=== PATIENT | male | born 1995 | race Caucasian/White ===

== ENCOUNTER 2017-03-06 22:24 | Emergency (ER) | payer SELFPAY ==
[2017-03-06 23:13] LABS: BASOPHIL % 0.5 % (0.0-0.4); Eosinophil % 2.4 % (0.00-5.0); Granulocytes % 61.6 % (36.0-66.0); Lymphocytes % 25.2 % (24.0-44.0); Mean Cell Volume 89.9 fl (78-100); Mean Corpuscular Hemoglobin 31.1 pg (26-32); Monocytes % 10.3 % (0.0-12.0); Platelet Count 251 K/mm3 (150-450); Red Blood Count 4.95 M/mm3 (4.1-5.6); Red Cell Distribution Width 13.3 % (11.5-14.0); White Blood Count 11.4 K/mm3 (4.0-10.5)
[2017-03-06 23:36] LABS: ALBUMIN 4.2 g/dL (3.4-5.0); ALKALINE PHOSPHATASE 75 U/L (46-116); ANION GAP 14.1 MEQ/L (5-15); BLOOD UREA NITROGEN 16 mg/dL (9-20); CHLORIDE 101 mEq/L (98-107); Carbon Dioxide 27.9 mEq/L (21-32); Glucose 109 MG/DL (70-110); Potassium 3.7 mEq/L (3.5-5.1); SGOT/AST 61 U/L (15-37); SGPT/ALT 106 U/L (12-78); SODIUM 139 mEq/L (136-145); Total Protein 8.6 gm/dL (6.4-8.2)
[2017-03-06 23:39] VITALS: BP 119/59; PULSE 100; O2SAT 100
[2017-03-06 23:44] LABS: ACETAMINOPHEN < 2.0 ug/ml (10-30)
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
[2017-03-07] MEDS ORDERED: BACIGUENT PACKET ONE (04:51)
[2017-03-07] MEDS ORDERED: BACIGUENT PACKET TP ONE (05:14)
== END 2017-03-07 05:15 | disposition short-term general hospital (02) ==
LOC: ED 22:24
DX: R45.851 Suicidal ideations (principal); X78.8XXA Intentional self-harm by other sharp object, initial encounter; Z91.5 Personal history of self-harm; F19.10 Other psychoactive substance abuse, uncomplicated
CPT/HCPCS: 36415; 80053; 80307; 80320; 83986; 85025; 99285; G0481; A9270-GY

== ENCOUNTER 2017-03-19 14:32 | Observation (INO) | payer MEDICAID ==
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
[2017-03-19] MEDS ORDERED: Sodium Chloride 0.9% 1000 ML 1,000 ML IV STA (15:32)
[2017-03-19] MEDS ORDERED: Ativan 2 MG/1 ML VIAL IV ONE (15:32)
[2017-03-19] MEDS ORDERED: Sodium Chloride 0.9% 1000 ML 1,000 ML ONE (15:39)
[2017-03-19] MEDS ORDERED: Ativan 2 MG/1 ML VIAL ONE (15:39)
[2017-03-19 15:49] LABS: BASOPHIL % 0.4 % (0.0-0.4); Eosinophil % 1.2 % (0.00-5.0); Lymphocytes % 15.5 % (24.0-44.0); Mean Cell Volume 88.1 fl (78-100); Mean Corpuscular Hemoglobin 30.7 pg (26-32); Mean Platelet Volume 9.7 fl (6-9.5); Monocytes % 12.9 % (0.0-12.0); Platelet Count 200 K/mm3 (150-450); Red Blood Count 4.37 M/mm3 (4.1-5.6); Red Cell Distribution Width 13.1 % (11.5-14.0); White Blood Count 10.4 K/mm3 (4.0-10.5)
[2017-03-19 15:59] LABS: ADD URINE CULTURE? NO (NO); Bilirubin NEGATIVE (NEGATIVE); Blood NEGATIVE Ery/ul (0-5); COMPLETE URINE MICROSCOPIC? NO; Collection Type VOID; Glucose NEGATIVE (NEGATIVE); Leukocyte Esterase NEGATIVE (NEGATIVE)
[2017-03-19 16:10] LABS: ALBUMIN 4.4 g/dL (3.4-5.0); ALKALINE PHOSPHATASE 67 U/L (46-116); ANION GAP 14.4 MEQ/L (5-15); BLOOD UREA NITROGEN 18 mg/dL (9-20); CHLORIDE 103 mEq/L (98-107); Carbon Dioxide 26.3 mEq/L (21-32); Glucose 81 MG/DL (70-110); Potassium 3.3 mEq/L (3.5-5.1); SGOT/AST 74 U/L (15-37); SGPT/ALT 103 U/L (12-78); SODIUM 140 mEq/L (136-145); Total Protein 7.8 gm/dL (6.4-8.2)
[2017-03-19 16:17] LABS: ACETAMINOPHEN < 2.0 ug/ml (10-30)
[2017-03-19] MEDS ORDERED: Klor Con 10 MEQ PO ONE ×2 (16:28→16:31)
[2017-03-19] MEDS ORDERED: TYLENOL 325 MG PO PRN (18:55)
[2017-03-19] MEDS ORDERED: Sodium Chloride 0.9% 1000 ML 1,000 ML IV SCH (18:55)
[2017-03-20] MEDS: Ativan 2 MG/1 ML VIAL IV PRN ×2 (02:45→04:03)
[2017-03-20] MEDS ORDERED: TYLENOL EXTRA STRENGTH 500 MG PO PRN (03:46)
[2017-03-20 05:57] LABS: BASOPHIL % 0.6 % (0.0-0.4); Eosinophil % 2.7 % (0.00-5.0); Granulocytes % 61.5 % (36.0-66.0); Lymphocytes % 20.2 % (24.0-44.0); Mean Cell Volume 88.7 fl (78-100); Mean Corpuscular Hemoglobin 31.3 pg (26-32); Mean Platelet Volume 9.7 fl (6-9.5); Platelet Count 204 K/mm3 (150-450); Red Blood Count 4.25 M/mm3 (4.1-5.6); Red Cell Distribution Width 13.2 % (11.5-14.0); White Blood Count 9.5 K/mm3 (4.0-10.5)
[2017-03-20] MEDS ORDERED: Ativan 2 MG/1 ML VIAL IM ONE (06:19)
[2017-03-20 06:32] LABS: ALBUMIN 3.8 g/dL (3.4-5.0); BLOOD UREA NITROGEN 14 mg/dL (9-20); CHLORIDE 107 mEq/L (98-107); Potassium 3.7 mEq/L (3.5-5.1); SGOT/AST 74 U/L (15-37)
[2017-03-20 09:02] LABS: ALKALINE PHOSPHATASE 58 U/L (46-116); ANION GAP 14.5 MEQ/L (5-15); Glucose 97 MG/DL (70-110); SGPT/ALT 97 U/L (12-78); SODIUM 140 mEq/L (136-145)
[2017-03-20] MEDS ORDERED: ZOLOFT 50 MG TABLET PO SCH (10:30)
[2017-03-20] MEDS ORDERED: Seroquel 100 MG PO SCH (10:30)
[2017-03-20 12:53] VITALS: BP 122/81; PULSE 67; O2SAT 97
--- NOTE | 2017-03-21 09:24 | HP ---
CHIEF COMPLAINT: Suicidal ideation and multiple drug abuse. Recent release from [facility] for the same. HISTORY OF PRESENT ILLNESS: The patient is a 21 y/o WM patient who presented to our Emergency Room for emergency correction for the above problems. He has been admitted to our Intensive Care Unit for close monitoring for placement. He has been placed on emergency correction by the cardiology coordinator and the Emergency Room physician. HOME MEDICATIONS: Apparently, he had been placed on Seroquel and Zoloft in the stress center. However, it is unlikely the patient has been taking any of his medications. PHYSICAL EXAMINATION: Reveals a well-nourished, well-developed, somewhat thin, 21 y/o WM patient currently somewhat obtunded from treatment of Ativan for sedation. The patient is handcuffed on both hands as he currently overnight had ran out of the hospital and was brought by the security team. HEENT: Normocephalic and atraumatic. Pupils equal, round, and reactive to light. Extraocular movements intact. Oropharynx is with poor dentition. NECK: Supple without lymphadenopathy, thyromegaly, or JVD. CHEST: Clear to auscultation with good air movement bilaterally. HEART: Regular rate and rhythm without murmurs, rubs, or gallops. ABDOMEN: Soft, nontender, nondistended without hepatosplenomegaly or masses. EXTREMITIES: Without cyanosis, clubbing, or edema. Again, he is hand cuffed and in the Intensive Care Unit bed. NEURO: Somewhat somnolent due to the treatment with Ativan. LABORATORY STUDIES: Shows the CBC which was essentially normal. He has had a metabolic panel showing slightly low potassium of 3.3. Liver enzymes were slightly elevated with an SGOT of 74 and SGPT of 103. Acetaminophen and salicylate levels were essentially negative and on his urine drug screen, he was positive for amphetamines, benzodiazepines, and opiates. The patient's ETOH was essentially negative. TSH was normal. UA was normal. ASSESSMENT: 1. THE PATIENT WITH PSYCHIATRIC DISORDERS, SUICIDAL INTENTION, AND MULTIPLE DRUG ABUSE AND USAGE. He is currently in the Intensive Care Unit under monitoring with an emergency correction order for admission to inpatient facility when a bed is available at the nearest facility possibly returning him back to [facility] since he has most recently been there and they would be most familiar with him.
== END 2017-03-20 15:20 ==
LOC: ED 14:32 → ICU 18:49
PROVIDERS: ADMIT Family Medicine; ATTEND Family Medicine
DX: F99 Mental disorder, not otherwise specified (principal); R45.851 Suicidal ideations; R45.850 Homicidal ideations; F19.10 Other psychoactive substance abuse, uncomplicated
CPT/HCPCS: 36000; 36415; 80053; 80307; 80320; 81002; 83986; 84443; 85025; 93005; 93041; 93268; 96360; 96361; 96374; 99285; G0378; G0481; J2060; A9270-GY

== ENCOUNTER 2017-09-29 13:24 | Emergency (ER) | payer SELFPAY ==
--- NOTE | 2017-09-29 13:33 | ERPHSYRPT ---
- History of Present Illness Time Seen by Provider: 09/29/17 13:27 Source: patient Exam Limitations: no limitations Physician History: The patient is a 22-year-old male brought in by ambulance from [facility] complaining of a cough for 2-3 days. He denies fever. Now hurts when he takes a big breath or coughs. He called the ambulance because he did not have a ride. He denies nausea, vomiting, or diarrhea. He did not get his influenza vaccination this year. He takes no prescription medicines at this time. Timing/Duration: day(s) (3) Cough Quality/Degree: moderate, dry cough Possible Cause: occasional episodes, smoke exposure Modifying Factors: Improves With: coughing Associated Symptoms: cough Allergies/Adverse Reactions: No Known Drug Allergies Allergy (Verified 09/29/17 13:32) Hx Tetanus, Diphtheria Vaccination/Date Given: No Hx Influenza Vaccination/Date Given: No Hx Pneumococcal Vaccination/Date Given: No - Review of Systems Constitutional: No Fever, No Chills Eyes: No Symptoms Ears, Nose, & Throat: No Symptoms Respiratory: Cough Cardiac: Chest Pain, No Edema, No Syncope Abdominal/Gastrointestinal: No Abdominal Pain, No Nausea, No Vomiting, No Diarrhea Genitourinary Symptoms: No Dysuria Musculoskeletal: No Back Pain, No Neck Pain Skin: No Rash Neurological: No Dizziness, No Focal Weakness, No Sensory Changes Psychological: No Symptoms Endocrine: No Symptoms Hematologic/Lymphatic: No Symptoms Immunological/Allergic: No Symptoms All Other Systems: Reviewed and Negative - Past Medical History Pertinent Past Medical History: No Neurological History: No Pertinent History ENT History: No Pertinent History Cardiac History: No Pertinent History Respiratory History: No Pertinent History Endocrine Medical History: No Pertinent History Musculoskeletal History: Other GI Medical History: No Pertinent History History: No Pertinent History Psycho-Social History: Anxiety, Depression Male Reproductive Disorders: No Pertinent History Other Medical History: DENTAL PROBLEMS - Past Surgical History Past Surgical History: Yes Neuro Surgical History: No Pertinent History Cardiac: No Pertinent History Respiratory: No Pertinent History Gastrointestinal: No Pertinent History Genitourinary: No Pertinent History Musculoskeletal: Orthopedic Surgery Male Surgical History: No Pertinent History Other Surgical History: LACERATION TO WRIST 05/05/15. Information was recalled due to patient sleeping. only wakes for a minute, will not answer questions. - Social History Smoking Status: Current every day smoker How long have you smoked: 5 YRS Exposure to second hand smoke: Yes Alcohol Use: None Drug Use: marijuana Patient Lives Alone: No Significant Family History: no pertinent family hx - Nursing Vital Signs Nursing Vital Signs: Initial Vital Signs Temperature 97.5 F 09/29/17 13:27 Pulse Rate 95 H 09/29/17 13:27 Respiratory Rate 22 09/29/17 13:27 Blood Pressure 138/75 09/29/17 13:27 O2 Sat by Pulse Oximetry 100 09/29/17 13:27 Pain Scale Pain Intensity 6 - Physical Exam General Appearance: no apparent distress, alert Eye Exam: PERRL/EOMI, eyes nml inspection Ears, Nose, Throat Exam: normal ENT inspection Neck Exam: normal inspection Respiratory Exam: chest tenderness Cardiovascular Exam: regular rate/rhythm, normal heart sounds Gastrointestinal/Abdomen Exam: soft, No tenderness Rectal Exam: not done Back Exam: normal inspection, No CVA tenderness, No vertebral tenderness Extremity Exam: normal inspection, normal range of motion Neurologic Exam: alert, oriented x 3, cooperative, normal mood/affect, sensation nml, No motor deficits Skin Exam: normal color, warm, dry, No rash Lymphatic Exam: No adenopathy SpO2 Interpretation: normal - Radiology Exams Chest X-ray Interpretation: Teleradiologist Report, Negative (Per Dr Hannon.) Ordered Tests: Active Orders 24 hr Category Date Time Status CHEST 2 VIEWS (PA AND LAT) Stat Exams 09/29/17 13:36 Completed Medication Summary Discontinued Medications Generic Name Dose Route Start Last Admin Trade Name Carlq PRN Reason Stop Dose Admin Ketorolac Tromethamine 60 mg 09/29/17 13:36 09/29/17 13:43 Toradol 30 Mg Injection IM 09/29/17 13:37 60 mg STAT ONE Administration Ketorolac Tromethamine Confirm 09/29/17 13:38 Toradol 30 Mg Injection Administered 09/29/17 13:39 Dose 60 mg .ROUTE .STK-MED ONE Lab/Rad Data: Laboratory Results 09/29/17 Range/Units 14:14 Influenza Type A Ag NEGATIVE (NEGATIVE) Influenza Type B Ag NEGATIVE (NEGATIVE) - Progress Progress: unchanged Air Movement: good Blood Culture(s) Obtained: No Antibiotics given: No Counseled pt/family regarding: lab results, diagnosis, rad results - Departure Time of Disposition: 14:34 Departure Disposition: Home Clinical Impression: Cough, Pleurisy Condition: Stable Critical Care Time: No Referrals: BLAIRE VALDES [Primary Care Provider] - Additional Instructions: You have a cough and pleurisy. You were given Toradol 60 mg by IM in the ER. Take Tessalon 100 mg every 8 hours as needed for cough. Follow-up as needed. Prescriptions: Benzonatate [Tessalon Perle] 100 mg PO Q8H PRN PRN #12 capsule PRN Reason: Cough
[2017-09-29] MEDS ORDERED: TORAdol 30 mg Injection IM ONE (13:36)
[2017-09-29] MEDS ORDERED: TORAdol 30 mg Injection ONE (13:38)
--- NOTE | 2017-09-29 14:02 | XRAY ---
Indication: Cough. Comparison: April 24, 2010. PA/lateral chest demonstrates normal heart, lungs, and bony thorax.
[2017-09-29 14:16] LABS: INFLUENZA A NEGATIVE (NEGATIVE); INFLUENZA B NEGATIVE (NEGATIVE)
[2017-09-29 14:45] VITALS: BP 106/70; PULSE 96; O2SAT 98
== END 2017-09-29 15:00 | disposition home or self-care (01) ==
LOC: ED 13:24
DX: R05 Cough (principal); R09.1 Pleurisy; F41.8 Other specified anxiety disorders; Z72.0 Tobacco use; F12.90 Cannabis use, unspecified, uncomplicated
CPT/HCPCS: 71020; 87400; 96372; 99284; J1885

== ENCOUNTER → 2018-01-20 | Emergency (ER) | payer SELFPAY ==
[2018-01-20 23:01] VITALS: O2SAT 100
[2018-01-20 23:15] LABS: BASOPHIL % 0.4 % (0.0-0.4); Basophil (Absolute #) 0.04 (0-0.4); Eosinophil % 2.7 % (0.00-5.0); Eosinophil (Absolute #) 0.25 (0-0.5); Granulocyte Absolute (ANC) 5.19 (1.4-6.9); Granulocytes % 55.7 % (36.0-66.0); Hematocrit 37.5 % (42-50); Hemoglobin 12.9 gm/dl (12.5-18.0); Lymphocyte (Absolute #) 2.79 (1.0-4.6); Mean Cell Volume 90.4 fl (78-100); Mean Corpuscular Hemoglobin 31.1 pg (26-32); Mean Corpuscular Hgb Concent. 34.4 g/dl (32-36); Mean Platelet Volume 9.2 fl (6-9.5); Monocyte (Absolute #) 1.04 (0.0-1.3); Monocytes % 11.2 % (0.0-12.0); Platelet Count 226 K/mm3 (150-450); Red Blood Count 4.15 M/mm3 (4.1-5.6); Red Cell Distribution Width 14.2 % (11.5-14.0); White Blood Count 9.3 K/mm3 (4.0-10.5)
[2018-01-20 23:32] LABS: Barbiturate,Urine NEGATIVE (NEGATIVE); Benzodiazepine,Urine NEGATIVE (NEGATIVE); Cocaine,Urine NEGATIVE (NEGATIVE); Methadone,Urine NEGATIVE (NEGATIVE); Opiate,Urine POSITIVE (NEGATIVE); PCP,Urine NEGATIVE (NEGATIVE); THC,Urine NEGATIVE (NEGATIVE)
[2018-01-20 23:35] LABS: ALBUMIN 3.9 g/dL (3.5-5.0); ALKALINE PHOSPHATASE 65 U/L (38-126); BLOOD UREA NITROGEN 9 mg/dL (9-20); CHLORIDE 106 mmol/L (98-107); Calcium 8.9 mg/dL (8.4-10.2); Carbon Dioxide 26 mmol/L (22-30); Creatinine 1 0.64 mg/dL (0.66-1.25); Glucose 90 mg/dL (74-106); Potassium 4.2 mmol/L (3.5-5.1); SGOT/AST 80 U/L (17-59); SGPT/ALT 134 U/L (0-50); SODIUM 140 mmol/L (137-145); Total Protein 6.6 g/dL (6.3-8.2)
[2018-01-20 23:37] LABS: ETHYL ALCOHOL < 10 mg/dL (0-9)
[2018-01-20 23:58] LABS: Amphetamine,Urine POSITIVE (NEGATIVE)
--- NOTE | 2018-01-21 00:06 | ERPHSYRPT ---
- History of Present Illness Time Seen by Provider: 01/21/18 00:05 Source: patient, police Exam Limitations: no limitations Patient Subjective Stated Complaint: pt brought in by police for waving gun around. pt pointed gun at people and then put it to his head. said he wanted to get shot and asked the police to "shoot him". after multiple attempts the pt finally put the gun down. Triage Nursing Assessment: pt brought in by police. pt is alert and oriented. Physician History: pt brought in by police for waving gun around. pt pointed gun at people and then put it to his head. said he wanted to get shot and asked the police to "shoot him". after multiple attempts the pt finally put the gun down. Allergies/Adverse Reactions: No Known Drug Allergies Allergy (Verified 09/29/17 13:32) Hx Tetanus, Diphtheria Vaccination/Date Given: No Hx Influenza Vaccination/Date Given: No Hx Pneumococcal Vaccination/Date Given: No Immunizations Up to Date: No - Past Medical History Pertinent Past Medical History: No Neurological History: No Pertinent History ENT History: No Pertinent History Cardiac History: No Pertinent History Respiratory History: No Pertinent History Endocrine Medical History: No Pertinent History Musculoskeletal History: Other GI Medical History: No Pertinent History History: No Pertinent History Psycho-Social History: Anxiety, Depression Male Reproductive Disorders: No Pertinent History Other Medical History: DENTAL PROBLEMS - Past Surgical History Past Surgical History: Yes Neuro Surgical History: No Pertinent History Cardiac: No Pertinent History Respiratory: No Pertinent History Gastrointestinal: No Pertinent History Genitourinary: No Pertinent History Musculoskeletal: Orthopedic Surgery Male Surgical History: No Pertinent History Other Surgical History: LACERATION TO WRIST 05/05/15. Information was recalled due to patient sleeping. only wakes for a minute, will not answer questions. - Social History Smoking Status: Current every day smoker How long have you smoked: 5 YRS Exposure to second hand smoke: Yes Alcohol Use: None Drug Use: marijuana, methamphetamines, narcotics, cocaine, heroin Patient Lives Alone: No Significant Family History: no pertinent family hx - Review of Systems Constitutional: No Fever, No Chills Eyes: No Symptoms Ears, Nose, & Throat: No Symptoms Respiratory: No Cough, No Dyspnea Cardiac: No Chest Pain, No Edema, No Syncope Abdominal/Gastrointestinal: No Abdominal Pain, No Nausea, No Vomiting, No Diarrhea Genitourinary Symptoms: No Dysuria Musculoskeletal: No Back Pain, No Neck Pain Skin: No Rash Neurological: No Dizziness, No Focal Weakness, No Sensory Changes Psychological: Drug Abuse, Suicidal Ideations, Emotional Lability Endocrine: No Symptoms All Other Systems: Reviewed and Negative - Nursing Vital Signs Nursing Vital Signs: Initial Vital Signs Temperature 98.4 F 01/20/18 22:47 Pulse Rate 96 H 01/20/18 22:47 Respiratory Rate 16 01/20/18 22:47 Blood Pressure 104/60 01/20/18 22:47 O2 Sat by Pulse Oximetry 100 01/20/18 22:47 Pain Scale Pain Intensity 0 - Physical Exam General Appearance: no apparent distress Eyes, Ears, Nose, Throat Exam: normal ENT inspection, moist mucous membranes Neck Exam: normal inspection, non-tender, supple Respiratory Exam: normal breath sounds, lungs clear, No respiratory distress Cardiovascular Exam: regular rate/rhythm, No edema Gastrointestinal/Abdominal Exam: soft, No tenderness, No distention Extremities Exam: normal inspection, normal range of motion, No evidence of injury, No edema Current Suicidality: denies suicide plan Neurological Exam: alert, 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-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 nml as tested, oriented x 3 Appearance: impaired insight, impaired recent memory Behavior/Eye Contact/Speech: avoids eye contact, refused to answer, increased rate of speech, agitated Thoughts/Hallucinations: incoherent Skin Exam: normal color, warm, dry, No rash SpO2: 100 - Course Nursing assessment & vital signs reviewed: Yes Ordered Tests: Active Orders 24 hr Category Date Time Status Clean Catch Urine Specimen STAT Care 01/20/18 23:08 Active Psychiatric Evaluation STAT Care 01/20/18 22:57 Active CBC W DIFF Stat Lab 01/20/18 23:12 Completed CMP Stat Lab 01/20/18 23:12 Completed ETHYL ALCOHOL Stat Lab 01/20/18 23:12 Completed Urine Triage Profile Stat Lab 01/20/18 23:00 Completed Lab/Rad Data: Laboratory Result Diagrams 01/20/18 23:12 01/20/18 23:12 Laboratory Results 01/20/18 01/20/18 01/20/18 Range/Units 23:12 23:12 23:00 WBC 9.3 (4.0-10.5) K/mm3 RBC 4.15 (4.1-5.6) M/mm3 Hgb 12.9 (12.5-18.0) gm/dl Hct 37.5 L (42-50) % MCV 90.4 (78-100) fl MCH 31.1 (26-32) pg MCHC 34.4 (32-36) g/dl RDW 14.2 H (11.5-14.0) % Plt Count 226 (150-450) K/mm3 MPV 9.2 (6-9.5) fl Gran % 55.7 (36.0-66.0) % Eos # (Auto) 0.25 (0-0.5) Absolute Lymphs (auto) 2.79 (1.0-4.6) Absolute Monos (auto) 1.04 (0.0-1.3) Lymphocytes % 30.0 (24.0-44.0) % Monocytes % 11.2 (0.0-12.0) % Eosinophils % 2.7 (0.00-5.0) % Basophils % 0.4 (0.0-0.4) % Absolute Granulocytes 5.19 (1.4-6.9) Basophils # 0.04 (0-0.4) Sodium 140 (137-145) mmol/L Potassium 4.2 (3.5-5.1) mmol/L Chloride 106 (98-107) mmol/L Carbon Dioxide 26 (22-30) mmol/L Anion Gap 12.0 (5-15) MEQ/L BUN 9 (9-20) mg/dL Creatinine 0.64 L (0.66-1.25) mg/dL Estimated GFR > 60.0 ML/MIN Glucose 90 (74-106) mg/dL Calcium 8.9 (8.4-10.2) mg/dL Total Bilirubin 0.20 (0.2-1.3) mg/dL AST 80 H (17-59) U/L ALT 134 H (0-50) U/L Alkaline Phosphatase 65 (38-126) U/L Serum Total Protein 6.6 (6.3-8.2) g/dL Albumin 3.9 (3.5-5.0) g/dL Urine Opiates Level POSITIVE (NEGATIVE) Ur Methadone NEGATIVE (NEGATIVE) Urine Barbiturates NEGATIVE (NEGATIVE) Ur Phencyclidine (PCP) NEGATIVE (NEGATIVE) Urine Amphetamine POSITIVE (NEGATIVE) U Benzodiazepine Level NEGATIVE (NEGATIVE) Urine Cocaine NEGATIVE (NEGATIVE) Urine Marijuana (THC) NEGATIVE (NEGATIVE) Ethyl Alcohol < 10 H (0-9) mg/dL - Progress Progress: unchanged Discussed with Dr.: Other (Telepsych evaluation by [facility]) - Departure Time of Disposition: 01:29 Departure Disposition: Transfer Clinical Impression: Suicidal ideation Condition: Fair Critical Care Time: Yes Critical Care Time(excluding separately billable procedures): 30-74 minutes Referrals: DOCTOR,NO FAMILY [Primary Care Provider] -
[2018-01-21 03:19] VITALS: PULSE 82
[2018-01-21 03:20] VITALS: BP 140/66
== END ==
LOC: ED 22:46
DX: R45.851 Suicidal ideations (principal); F41.8 Other specified anxiety disorders; Z72.0 Tobacco use
CPT/HCPCS: 36415; 80053; 80307; 85025; 99284; 99285; G0480

== ENCOUNTER 2018-05-08 07:02 | Emergency (ER) | payer OTHER ==
--- NOTE | 2018-05-08 07:39 | ERPHSYRPT ---
- History of Present Illness Time Seen by Provider: 05/08/18 07:33 Source: patient Exam Limitations: no limitations Patient Subjective Stated Complaint: pt presents with complaints of heat exhaustion, dizziness and weakness. states he has not eaten for 2 days and been walking between [place] and [place] and walked about 20 miles. feels like he is dehydrated. reports he is homeless. pt states "i dont want to live, i have no purpose." reports he walked to the police station and told them if they didnt help him he would shoot himself. pt reports he has been unconscious for periods as well. Triage Nursing Assessment: pt is aox3, pupils perrl, resps easy and non labored , radial pulses are strong and equal. pt skin is pink warm and dry. pt appears anxious, pt speech is rambling, pt is tearful, pt is upset with the amount of questions asked my staff. Physician History: The patient is a 22-year-old male with a long psychiatric history of depression and suicide attempts brought in by ambulance from the police station in town where he presented to the police stating that he was going to shoot himself. The patient is tearful and animated upon initial interview and tells me that he has been homeless since getting out of longterm 7 months ago. For the past 2 days he has been sleeping in [place]. No one will help him. 2 days ago he walked to a nearby town and got $6 from his grandfather with which he bought something to drink and pizza. He states that he wants to go to the but he cannot because of his arrest record. He confides in me that he has done opiates in the past. He states 2 days ago he did methamphetamine. He also tells me in the past he tried to hang himself but the rope was too long and his feet hit the ground. He has scars on both forearms from which he has attempted to cut his arms and wrists in a suicide attempt. He tells me no one will help him. He 's been in the , [facility], and psychiatric hospitals in [place]. He states people want to give him medicines. He is currently taking no medicines. Timing/Duration: week(s), gradual onset, worse Severity of Symptoms-Max: moderate Severity of Symptoms-Current: moderate Context related to: living circumstances Suicidal thoughts: specific plan Associated Symptoms: agitated, anxiety, depressed, frustrated, suicidal ideation Previous symptoms: same symptoms as today, recent hospitalization Allergies/Adverse Reactions: No Known Drug Allergies Allergy (Verified 09/29/17 13:32) Hx Tetanus, Diphtheria Vaccination/Date Given: Yes Hx Influenza Vaccination/Date Given: No Hx Pneumococcal Vaccination/Date Given: No Immunizations Up to Date: Yes - Past Medical History Pertinent Past Medical History: No Neurological History: No Pertinent History ENT History: No Pertinent History Cardiac History: No Pertinent History Respiratory History: No Pertinent History Endocrine Medical History: No Pertinent History Musculoskeletal History: Other GI Medical History: No Pertinent History History: No Pertinent History Psycho-Social History: Anxiety, Depression Male Reproductive Disorders: No Pertinent History Other Medical History: DENTAL PROBLEMS - Past Surgical History Past Surgical History: Yes Neuro Surgical History: No Pertinent History Cardiac: No Pertinent History Respiratory: No Pertinent History Gastrointestinal: No Pertinent History Genitourinary: No Pertinent History Musculoskeletal: Orthopedic Surgery Male Surgical History: No Pertinent History Other Surgical History: LACERATION TO WRIST 05/05/15. Information was recalled due to patient sleeping. only wakes for a minute, will not answer questions. - Social History Smoking Status: Never smoker How long have you smoked: 5 YRS Exposure to second hand smoke: Yes Alcohol Use: None Drug Use: none Patient Lives Alone: Yes Significant Family History: no pertinent family hx - Review of Systems Constitutional: No Fever, No Chills Eyes: No Symptoms Ears, Nose, & Throat: No Symptoms Respiratory: No Cough, No Dyspnea Cardiac: No Chest Pain, No Edema, No Syncope Abdominal/Gastrointestinal: No Abdominal Pain, No Nausea, No Vomiting, No Diarrhea Genitourinary Symptoms: No Dysuria Musculoskeletal: No Back Pain, No Neck Pain Skin: No Rash Neurological: No Dizziness, No Focal Weakness, No Sensory Changes Psychological: Anxiety, Depression, Suicidal Ideations, Emotional Lability Endocrine: No Symptoms Hematologic/Lymphatic: No Symptoms Immunological/Allergic: No Symptoms All Other Systems: Reviewed and Negative - Nursing Vital Signs Nursing Vital Signs: Initial Vital Signs Pulse Rate 89 05/08/18 07:06 Respiratory Rate 20 05/08/18 07:06 Blood Pressure 123/89 05/08/18 07:06 O2 Sat by Pulse Oximetry 100 05/08/18 07:06 Pain Scale Pain Intensity 0 - Physical Exam General Appearance: moderate distress, anxiety Eyes, Ears, Nose, Throat Exam: normal ENT inspection, moist mucous membranes Neck Exam: normal inspection, non-tender, supple Respiratory Exam: normal breath sounds, lungs clear, No respiratory distress Cardiovascular Exam: regular rate/rhythm, No edema Gastrointestinal/Abdominal Exam: soft, No tenderness, No distention Extremities Exam: normal inspection, normal range of motion, No evidence of injury, No edema Current Suicidality: has suicide plan Neurological Exam: agitated, anxious Appearance: appropriate appearance, impaired insight Behavior/Eye Contact/Speech: alert & cooperative, increased rate of speech Thoughts/Hallucinations: paranoid Skin Exam: normal color, warm, dry, No rash SpO2 Interpretation: normal SpO2: 100 Oxygen Delivery: Room Air - Course EKG Interpreted by Me: RATE, Sinus Rhythm, NORMAL AXIS, NORMAL INTERVALS, NORMAL QRS, NORMAL ST-T Ordered Tests: Active Orders 24 hr Category Date Time Status Gas Station Operator STAT Care 05/08/18 07:34 Active EKG-ER Only STAT Care 05/08/18 07:34 Active IV Insertion STAT Care 05/08/18 07:34 Active ACETAMINOPHEN Stat Lab 05/08/18 07:45 Completed CBC W DIFF Stat Lab 05/08/18 07:45 Completed CMP Stat Lab 05/08/18 07:45 Completed ETHYL ALCOHOL Stat Lab 05/08/18 07:45 Completed SALICYLATE Stat Lab 05/08/18 07:45 Completed UA W/RFX UR CULTURE Stat Lab 05/08/18 08:05 Completed Urine Triage Profile Stat Lab 05/08/18 08:05 Completed Medication Summary Discontinued Medications Generic Name Dose Route Start Last Admin Trade Name Mulugeta PRN Reason Stop Dose Admin Sodium Chloride 1,000 mls @ 999 mls/hr 05/08/18 07:34 05/08/18 08:58 Sodium Chloride 0.9% 1000 Ml IV 05/08/18 08:34 Infused .Q1H1M STA Infusion Sodium Chloride Confirm 05/08/18 07:44 Sodium Chloride 0.9% 1000 Ml Administered 05/08/18 07:45 Dose 1,000 mls @ ud .ROUTE .STK-MED ONE Lab/Rad Data: Laboratory Result Diagrams 05/08/18 07:45 05/08/18 07:45 Laboratory Results 05/08/18 05/08/18 05/08/18 Range/Units 08:05 08:05 07:45 WBC (4.0-10.5) K/mm3 RBC (4.1-5.6) M/mm3 Hgb (12.5-18.0) gm/dl Hct (42-50) % MCV (78-100) fl MCH (26-32) pg MCHC (32-36) g/dl RDW (11.5-14.0) % Plt Count (150-450) K/mm3 MPV (6-9.5) fl Gran % (36.0-66.0) % Eos # (Auto) (0-0.5) Absolute Lymphs (auto) (1.0-4.6) Absolute Monos (auto) (0.0-1.3) Lymphocytes % (24.0-44.0) % Monocytes % (0.0-12.0) % Eosinophils % (0.00-5.0) % Basophils % (0.0-0.4) % Absolute Granulocytes (1.4-6.9) Basophils # (0-0.4) Sodium 139 (137-145) mmol/L Potassium 3.9 (3.5-5.1) mmol/L Chloride 98 (98-107) mmol/L Carbon Dioxide 24 (22-30) mmol/L Anion Gap 21.8 H (5-15) MEQ/L BUN 22 H (9-20) mg/dL Creatinine 0.93 (0.66-1.25) mg/dL Estimated GFR > 60.0 ML/MIN Glucose 95 (74-106) mg/dL Calcium 9.4 (8.4-10.2) mg/dL Total Bilirubin 2.20 H (0.2-1.3) mg/dL AST 115 H (17-59) U/L ALT 142 H (0-50) U/L Alkaline Phosphatase 150 H (38-126) U/L Serum Total Protein 8.5 H (6.3-8.2) g/dL Albumin 5.2 H (3.5-5.0) g/dL Ur Collection Type VOID Urine Color YELLOW (YELLOW) Urine Appearance CLEAR (CLEAR) Urine pH 5.0 (5-6) Ur Specific [place] 1.020 (1.005-1.025) Urine Protein NEGATIVE (Negative) Urine Ketones SMALL-15 (NEGATIVE) Urine Blood NEGATIVE (0-5) Darion/ul Urine Nitrite NEGATIVE (NEGATIVE) Urine Bilirubin NEGATIVE (NEGATIVE) Urine Urobilinogen NORMAL (0-1) mg/dL Ur Leukocyte Esterase NEGATIVE (NEGATIVE) Urine Culture Reflexed NO (NO) Urine Glucose NEGATIVE (NEGATIVE) mg/dL Salicylates < 1.0 L (2-20) mg/dL Urine Opiates Level NEGATIVE (NEGATIVE) Ur Methadone NEGATIVE (NEGATIVE) Acetaminophen < 10 L (10-30) ug/ml Urine Barbiturates NEGATIVE (NEGATIVE) Ur Phencyclidine (PCP) NEGATIVE (NEGATIVE) Urine Amphetamine POSITIVE (NEGATIVE) U Benzodiazepine Level NEGATIVE (NEGATIVE) Urine Cocaine NEGATIVE (NEGATIVE) Urine Marijuana (THC) NEGATIVE (NEGATIVE) Ethyl Alcohol < 10 (0-10) mg/dL Specimen Received 05/08 81505/08/18 Range/Units 07:45 WBC 8.4 (4.0-10.5) K/mm3 RBC 4.91 (4.1-5.6) M/mm3 Hgb 15.5 (12.5-18.0) gm/dl Hct 42.5 (42-50) % MCV 86.6 (78-100) fl MCH 31.6 (26-32) pg MCHC 36.5 H (32-36) g/dl RDW 13.1 (11.5-14.0) % Plt Count 259 (150-450) K/mm3 MPV 9.4 (6-9.5) fl Gran % 54.8 (36.0-66.0) % Eos # (Auto) 0.11 (0-0.5) Absolute Lymphs (auto) 2.28 (1.0-4.6) Absolute Monos (auto) 1.35 H (0.0-1.3) Lymphocytes % 27.2 (24.0-44.0) % Monocytes % 16.1 H (0.0-12.0) % Eosinophils % 1.3 (0.00-5.0) % Basophils % 0.6 (0.0-0.4) % Absolute Granulocytes 4.59 (1.4-6.9) Basophils # 0.05 (0-0.4) Sodium (137-145) mmol/L Potassium (3.5-5.1) mmol/L Chloride (98-107) mmol/L Carbon Dioxide (22-30) mmol/L Anion Gap (5-15) MEQ/L BUN (9-20) mg/dL Creatinine (0.66-1.25) mg/dL Estimated GFR ML/MIN Glucose (74-106) mg/dL Calcium (8.4-10.2) mg/dL Total Bilirubin (0.2-1.3) mg/dL AST (17-59) U/L ALT (0-50) U/L Alkaline Phosphatase (38-126) U/L Serum Total Protein (6.3-8.2) g/dL Albumin (3.5-5.0) g/dL Ur Collection Type Urine Color (YELLOW) Urine Appearance (CLEAR) Urine pH (5-6) Ur Specific [place] (1.005-1.025) Urine Protein (Negative) Urine Ketones (NEGATIVE) Urine Blood (0-5) Darion/ul Urine Nitrite (NEGATIVE) Urine Bilirubin (NEGATIVE) Urine Urobilinogen (0-1) mg/dL Ur Leukocyte Esterase (NEGATIVE) Urine Culture Reflexed (NO) Urine Glucose (NEGATIVE) mg/dL Salicylates (2-20) mg/dL Urine Opiates Level (NEGATIVE) Ur Methadone (NEGATIVE) Acetaminophen (10-30) ug/ml Urine Barbiturates (NEGATIVE) Ur Phencyclidine (PCP) (NEGATIVE) Urine Amphetamine (NEGATIVE) U Benzodiazepine Level (NEGATIVE) Urine Cocaine (NEGATIVE) Urine Marijuana (THC) (NEGATIVE) Ethyl Alcohol (0-10) mg/dL Specimen Received - Progress Progress: improved Progress Note: 05/08/18 13:22 forensic social worker from arrives and evaluates pt. Counseled pt/family regarding: lab results, diagnosis - Departure Time of Disposition: 13:24 Departure Disposition: Transfer (Transfer to Shantel Eid NP.) Clinical Impression: Depression, Suicidal ideation Condition: Stable Critical Care Time: No Referrals: DOCTOR,NO FAMILY [Primary Care Provider] -
[2018-05-08] MEDS ORDERED: Sodium Chloride 0.9% 1000 ML 1,000 ML ONE (07:44)
[2018-05-08 07:48] LABS: BASOPHIL % 0.6 % (0.0-0.4); Basophil (Absolute #) 0.05 (0-0.4); Eosinophil % 1.3 % (0.00-5.0); Eosinophil (Absolute #) 0.11 (0-0.5); Granulocyte Absolute (ANC) 4.59 (1.4-6.9); Granulocytes % 54.8 % (36.0-66.0); Hematocrit 42.5 % (42-50); Hemoglobin 15.5 gm/dl (12.5-18.0); Lymphocyte (Absolute #) 2.28 (1.0-4.6); Lymphocytes % 27.2 % (24.0-44.0); Mean Cell Volume 86.6 fl (78-100); Mean Corpuscular Hemoglobin 31.6 pg (26-32); Mean Corpuscular Hgb Concent. 36.5 g/dl (32-36); Mean Platelet Volume 9.4 fl (6-9.5); Monocyte (Absolute #) 1.35 (0.0-1.3); Monocytes % 16.1 % (0.0-12.0); Platelet Count 259 K/mm3 (150-450); Red Blood Count 4.91 M/mm3 (4.1-5.6); Red Cell Distribution Width 13.1 % (11.5-14.0); White Blood Count 8.4 K/mm3 (4.0-10.5)
[2018-05-08] MEDS: Sodium Chloride 0.9% 1000 ML 1,000 ML IV STA (08:01)
[2018-05-08 08:19] LABS: ALBUMIN 5.2 g/dL (3.5-5.0); ALKALINE PHOSPHATASE 150 U/L (38-126); ANION GAP 21.8 MEQ/L (5-15); BLOOD UREA NITROGEN 22 mg/dL (9-20); CHLORIDE 98 mmol/L (98-107); Calcium 9.4 mg/dL (8.4-10.2); Carbon Dioxide 24 mmol/L (22-30); Creatinine 1 0.93 mg/dL (0.66-1.25); Glucose 95 mg/dL (74-106); Potassium 3.9 mmol/L (3.5-5.1); SGOT/AST 115 U/L (17-59); SGPT/ALT 142 U/L (0-50); SODIUM 139 mmol/L (137-145); Total Protein 8.5 g/dL (6.3-8.2)
[2018-05-08 08:24] LABS: Appearance CLEAR (CLEAR); Bilirubin NEGATIVE (NEGATIVE); Blood NEGATIVE Ery/ul (0-5); Glucose NEGATIVE (NEGATIVE); Ketones SMALL-15 (NEGATIVE); Leukocyte Esterase NEGATIVE (NEGATIVE); Nitrite NEGATIVE (NEGATIVE); Protein,Urine Dip NEGATIVE (Negative); Urobilinogen NORMAL mg/dL (0-1)
[2018-05-08 08:24] LABS: ACETAMINOPHEN < 10 ug/ml (10-30); ETHYL ALCOHOL < 10 mg/dL (0-10); SALICYLATE < 1.0 mg/dL (2-20)
[2018-05-08 08:38] LABS: Barbiturate,Urine NEGATIVE (NEGATIVE); Benzodiazepine,Urine NEGATIVE (NEGATIVE); Cocaine,Urine NEGATIVE (NEGATIVE); Methadone,Urine NEGATIVE (NEGATIVE); Opiate,Urine NEGATIVE (NEGATIVE); PCP,Urine NEGATIVE (NEGATIVE); THC,Urine NEGATIVE (NEGATIVE)
[2018-05-08 09:42] LABS: Amphetamine,Urine POSITIVE (NEGATIVE)
[2018-05-08 14:43] VITALS: BP 119/73; PULSE 73; O2SAT 98
== END 2018-05-08 14:44 | disposition short-term general hospital (02) ==
LOC: ED 07:02
DX: F32.9 Major depressive disorder, single episode, unspecified (principal); R45.851 Suicidal ideations
CPT/HCPCS: 36000; 36415; 80053; 80307; 81002; 85025; 93005; 93041; 96360; 99285; G0481; G0480

== ENCOUNTER 2018-12-03 11:30 | Emergency (ER) | payer OTHER ==
[2018-12-03] MEDS ORDERED: Sodium Chloride 0.9% 1000 ML 1,000 ML IV STA ×2 (12:01→18:27)
[2018-12-03] MEDS ORDERED: Sodium Chloride 0.9% 1000 ML 1,000 ML ONE (12:11)
[2018-12-03 12:23] VITALS: O2SAT 97
[2018-12-03] MEDS ORDERED: NEURONTIN 300 MG PO STA (12:34)
[2018-12-03 12:35] LABS: ALBUMIN 4.6 g/dL (3.5-5.0); ALKALINE PHOSPHATASE 90 U/L (38-126); BLOOD UREA NITROGEN 15 mg/dL (9-20); CHLORIDE 101 mmol/L (98-107); Calcium 9.2 mg/dL (8.4-10.2); Carbon Dioxide 25 mmol/L (22-30); Creatinine 1 0.76 mg/dL (0.66-1.25); Glucose 79 mg/dL (74-106); Potassium 3.5 mmol/L (3.5-5.1); SGOT/AST 70 U/L (17-59); SGPT/ALT 106 U/L (0-50); SODIUM 137 mmol/L (137-145); Total Protein 7.7 g/dL (6.3-8.2)
[2018-12-03 12:36] LABS: ACETAMINOPHEN < 10 ug/ml (10-30); ETHYL ALCOHOL < 10 mg/dL (0-10); SALICYLATE < 1.0 mg/dL (2-20)
[2018-12-03 14:41] LABS: Appearance CLEAR (CLEAR); Bilirubin NEGATIVE (NEGATIVE); Blood NEGATIVE Ery/ul (0-5); Glucose NEGATIVE (NEGATIVE); Ketones NEGATIVE (NEGATIVE); Leukocyte Esterase NEGATIVE (NEGATIVE); Nitrite NEGATIVE (NEGATIVE); Protein,Urine Dip NEGATIVE (Negative); Specific Gravity 1.011 (1.005-1.025); Urobilinogen NEGATIVE mg/dL (0-1)
[2018-12-03 14:54] LABS: Barbiturate,Urine NEGATIVE (NEGATIVE); Benzodiazepine,Urine POSITIVE (NEGATIVE); Cocaine,Urine NEGATIVE (NEGATIVE); Methadone,Urine NEGATIVE (NEGATIVE); Opiate,Urine POSITIVE (NEGATIVE); PCP,Urine NEGATIVE (NEGATIVE); THC,Urine NEGATIVE (NEGATIVE)
[2018-12-03 15:24] LABS: Amphetamine,Urine POSITIVE (NEGATIVE)
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
[2018-12-03 16:42] VITALS: BP 90/43; PULSE 86
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
== END 2018-12-03 17:30 | disposition short-term general hospital (02) ==
LOC: ED 11:30
DX: R46.89 Other symptoms and signs involving appearance and behavior (principal); T58.02XA Toxic effect of carbon monoxide from motor vehicle exhaust, intentional self-harm, initial encounter; F41.9 Anxiety disorder, unspecified; F32.9 Major depressive disorder, single episode, unspecified; Y33.XXXA Other specified events, undetermined intent, initial encounter; Y99.9 Unspecified external cause status
CPT/HCPCS: 36415; 80053; 80307; 81001; 83735; 84100; 93005; 93041; 96360; 96361; 99291; G0480; G0481; 71046; 99285; A9270-GY